=== PATIENT | female | born 1945 | race Caucasian/White ===

== ENCOUNTER → 2016-10-04 | Outpatient (CLI) | payer OTHER ==
[~2016-10-04] MED LIST: ACTONEL150 MG PO; ADVAIR HFA115 MCG/21 INH; AMITIZA8 MCG; APAP/CODEINE ELI5 M1 OR; ATROVENT HFA14 GM INH; AVELOX400 MG PO; BENADRYL25 MG PO; BENTYL 20 MG TA20 M1 PO; BIOTIN2500 MCG PO; CALCIUM CITRAT1 EA18 PO; CELEXA40 MG PO; COLACE100 MG PO; DEXILANT60 MG PO; DIPHENHIST25 M2 PO; E E S PO; ENDOCET 7.5-321 EACH; ESTRACE2 MG VAG; ESTROVEN ENER400 MCG PO; ESTROVEN MOOD400 MCG PO; ESTROVEN REGU400 MCG PO; EXCEDRIN MIGRA1 EAC1 PO; FISH OIL 1,001000 M1 PO; FLEXERIL PO; GABAPENTIN 100100 MG PO; GAS-X125 MG PO; GLUCOSAMINE HC500 MG PO; HYDROCODON-ACE1 EAC5 PO; HYDROCODON-ACE1 EAC7 PO; LEVAQUIN 250 M250 MG PO; MAGNESIUM250 M1 PO; MICARDIS HCT 41 EACH; MICARDIS HCT 41 EACH PO; MIDRIN CAPSULE1 CAP; MIRALAX255 GM PO; MOBIC7.5 MG PO; NEXIUM40 MG; NORCO 5-325 TA1 EACH; NORCO 5-325 TA1 EACH PO; OXYCODONE HCL5 M1; PHENERGAN 25 MG25 M1 PO; PREMARIN VAGI42.5 G1 VAG; PROTONIX40 M1 PO; SENNA8.6 M1 PO; SENNA8.6 MG PO; SPIRIVA INH; SPIRONOLACTONE25 M1 PO; SYMBICORT160 MCG/4. INH; TRAMADOL 50 MG50 MG PO; TYLENOL325 MG PO; VITAMIN E OIL-V52 M1 PO; VITAMINC500 PO; XARELTO10 MG PO; XOPENEX HF1 UDINHALE INH; ZOMIG ZMT2.5 MG PO
== END ==
LOC: RAD 11:11
DX: S22.42XA Multiple fractures of ribs, left side, initial encounter for closed fracture (principal)

== ENCOUNTER → 2018-11-09 | Outpatient (CLI) | payer OTHER | LOC: RAD 11:45 | DX: Z12.31 Encounter for screening mammogram for malignant neoplasm of breast (principal) ==

== ENCOUNTER 2019-04-23 07:51 | Inpatient (IN) | payer OTHER ==
[2019-04-11 16:03] LABS: HEMATOCRIT 38.1 % (37.0-47.0); HEMOGLOBIN 12.7 gm/dL (12.0-15.0); MCH 30.4 pg (26.0-34.0); MCHC 33.2 g/dL (28.0-37.0); MCV 91.8 fL (80.0-100.0); RBC 4.16 mil/uL (4.20-5.00); WBC 7.9 thou/uL (4.0-11.0)
[2019-04-11 16:04] LABS: URINE BILIRUBIN NEGATIVE (Negative); URINE BLOOD TRACE (Negative); URINE CLARITY CLEAR; URINE COLOR YELLOW; URINE GLUCOSE-RANDOM* NEGATIVE (Negative); URINE KETONES NEGATIVE (Negative); URINE LEUKOCYTES-REFLEX NEGATIVE (Negative); URINE NITRITE-REFLEX NEGATIVE (Negative); URINE PROTEIN (DIPSTICK) NEGATIVE (Negative); URINE UROBILINOGEN 0.2 E.U./dl (0.2-1.0)
[2019-04-11 16:16] LABS: PROTIME 10.4 Seconds (9.3-11.4)
[2019-04-11 16:26] LABS: ALBUMIN 3.4 g/dL (3.4-5.0); CALCIUM 8.6 mg/dL (8.5-10.1); CREATININE 1.1 mg/dL (0.6-1.0); POTASSIUM 4.4 mmol/L (3.5-5.1); TOTAL BILIRUBIN 0.2 mg/dL (<0.1-1.0); TOTAL PROTEIN 5.9 g/dL (6.4-8.2)
[~2019-04-23] VITALS: Ht 170.2 cm; Wt 108.4 kg
[~2019-04-23 07:51] MED LIST changes: +ANORO ELLIPTA1 EACH INH; +ASA81BEC PO; +BETAMETHASONE D50 G2 TOP; +BIOTIN5000 MCG PO; +DIPHENHIST50 MG PO; +ESTROVEN ENERG1 EACH PO; +EXCEDRIN CAPLE1 EACH PO; +FLECAINIDE ACET50 M2 PO; +FUROSEMIDE 20 M20 MG PO; +LIPITOR40 MG PO; +LORCET 5-325 M1 EACH PO; +MELATONIN3 M1 PO; +MYSOLINE50 MG PO; +NEURONTIN 300M300 M2 PO; +PREMARIN30 GM TOP; +PROLIA60 MG/1 ML SUBQ; +SM GLUCOSAMINE1 EACH PO; +TOPROL XL25 MG PO; +VITAMIN D31000 UNIT PO; -XOPENEX HF1 UDINHALE INH; +XOPENEX HFA15 GM INH
[2019-04-23 08:57] VITALS: BP 102/58
--- NOTE | 2019-04-23 18:30 | NUR ---
PT RECEIVED FROM REC RM AT 1500 ALERT AND IN NO ACUTE DISTRESS. PT AMBULATED W/ WALKER W/ THERAPIST AND DID WELL. NO C/O PAIN. O2 INCREASED TO 5L PT NOT BREATHING DEEP ENOUGH. RT TX TO START AND CO2 MONITOR. UP TO BSC TO VOID. EATING AND DRINKING WELL.
[2019-04-23 19:45] VITALS: BP 114/65
--- NOTE | 2019-04-24 04:24 | NUR ---
ASSUMED CARE OF PATIENT AT SHIFT CHANGE. ASSESSMENT CHARTED. MEDICATIONS GIVEN PER MAR. PATIENT IS A&OX4, VSS. PATIENT VOICES EXTREME PAIN AND DISCOMFORT AT A 8-9/10. PATIENT REFUSES TO USE BEDPAN BUT IS UP X 2 - MAX ASSIST WITH A GAIT BELT AND WALKER TO THE BEDSIDE COMMODE. PATIENT DID NOT TOLERATE WELL AND C/O PAIN AT HIP. PRN PAIN MEDS GIVEN PER MAR. PATIENT IS DOING WELL POSTOPERATIVELY. FALL PRECAUTIONS IN PLACE. WILL CONTINUE TO MONITOR AND FOLLOW POC
[2019-04-24 04:40] VITALS: BP 110/62
--- NOTE | 2019-04-24 05:07 | NUR ---
PATIENT VOICED PAIN EARLIER AT A 01/20. PATIENT WAS GIVEN PRN PAIN MEDS PER MAR. PATIENT REQUESTED TO HAVE A LOWER DOSE OF PRN PAIN MED DUE TO ITCHING AND NAUSEA. LAST PAIN MED GIVEN W/ SANDWHICH AND BENADRYL PATIENT ALWAYS TAKES BENADRYL W/ NORCO. PATIENT ALSO REQUESTED TO USE FRACTURE WHITMAN. WILL CONTINUE TO MONITOR
[2019-04-24 05:14] LABS: HEMATOCRIT 28.5 % (37.0-47.0); HEMOGLOBIN 9.4 gm/dL (12.0-15.0); MCH 30.2 pg (26.0-34.0); MCHC 32.9 g/dL (28.0-37.0); MCV 91.7 fL (80.0-100.0); PLATELET COUNT 147 thou/uL (150-400); RBC 3.11 mil/uL (4.20-5.00); RDW 13.8 % (10.5-14.5); WBC 7.8 thou/uL (4.0-11.0)
[2019-04-24 05:17] LABS: CALCIUM 8.3 mg/dL (8.5-10.1); CREATININE 1.2 mg/dL (0.6-1.0); MAGNESIUM 1.4 mg/dL (1.8-2.4); POTASSIUM 4.4 mmol/L (3.5-5.1)
[2019-04-24 07:45] VITALS: BP 123/50
[2019-04-24 08:45] LABS: ABSOLUTE NEUTROPHILS 5.6 thou/uL (1.4-8.2); PLATELET ESTIMATE NORMAL
--- NOTE | 2019-04-24 12:35 | NUR ---
ASSESSMENT-PT LIVES AT HOME WITH HER . [address]. PT USES A ROLLER WALKER TO GET AROUND AT HOME. THEY HAVE A CLEANING LADY THAT COMES EVERY 2 WEEKS. DOES THE LAUNDRY AND COOKING. PT HAS 02 FROM [facility]. SHE WANTS TO USE [facility]. THEY HAVE A DTR IN THE AREA AND A SON IN [place]. FOLLOWING TO ASSIST WITH DC PLANNING.
[2019-04-24 15:55] VITALS: BP 109/53
--- NOTE | 2019-04-24 17:39 | O ---
[facility] [place] [address] OPERATIVE REPORT Name: GIGI HAYES Room #: 438-P [facility] IN M.R.#: [id number] Admission: 04/23/19 Attend Phys: Vincenzo Earl MD Discharge: Date of : 49 Report #: [id number] THIS REPORT FOR: //name// CC: Vincenzo Earl Shane Orellana DATE OF SERVICE: 04/23/2019 PREOPERATIVE DIAGNOSIS: End-stage degenerative arthritis, right hip. POSTOPERATIVE DIAGNOSIS: End-stage degenerative arthritis, right hip. PROCEDURE: Right total hip arthroplasty. SURGEON: Vincenzo Earl MD INDICATIONS: This heavy deconditioned 73-year-old female with multiple chronic medical problems including COPD, also has severe degenerative arthritis involving the right hip. She underwent right total knee replacement in the past with good result. She is now having more severe hip pain, which limits her ability to remain functional and independent. The patient and family have discussed this at some length and reviewed this with her other physicians. She has elected to go ahead with right total hip arthroplasty. The patient and family understand she is at some increased risk given her other comorbidity issues. DESCRIPTION OF PROCEDURE: The patient was taken to the operating room where she was placed under general anesthesia. Prophylactic intravenous antibiotics were administered. She was turned to the left lateral decubitus position. The right hip, thigh and leg were meticulously prepped and draped. A slightly curving posterolateral skin incision was made centered over the greater trochanter. This was carried through fascia and the gluteus was spread bluntly exposing the posterior aspect of the hip joint. The short external rotators and capsule were taken down and preserved and tagged with several #2 FiberWire sutures. The hip was dislocated posteriorly. Marked degenerative change on both the acetabulum and the femoral head was noted. The femoral neck osteotomy was performed. The canal was prepared with reamers and hand broaches. The [employer] and [employer] system was utilized. A size 14 stem seemed to fit most appropriately. The calcar was trimmed down to an appropriate level. The acetabulum was visualized, although with some difficulty given her very large size. There was a good deal of spurring around the margin of the acetabulum, which was debrided. The acetabulum was then sequentially reamed, gradually advancing to a size 54 mm reamer. This was positioned with as much anteversion as I could, although this was somewhat limited by her very large size and difficulty with exposure given the femur, which was impeding in exposure of the acetabulum to some extent. Nevertheless, I felt we have acceptable alignment with slightly greater [address] [address] OPERATIVE REPORT Name: GIGI HAYES Room #: 438-P [facility] IN .R.#: [id number] Admission: 04/23/19 Attend Phys: Vincenzo Earl MD Discharge: Date of : 49 Report #: [id number] anteversion than her true acetabulum. The trial component was removed and the permanent size 54 mm 3-hole StikTite hemispherical shell was inserted. This was implanted in as much anteversion as I could obtain with the limits of the exposure. It seated nicely and appeared to be secure. Two screws were placed through the apex holes with adequate purchase. A polyethylene liner was then placed positioning the 20-degree elevated rim at about the 10 o'clock posterior position. It seated nicely and appeared to be secure. The size 14 Synergy high offset stem was selected. This was impacted in the canal in about 15 degrees of anteversion. It seated nicely and appeared to be secure. A trial reduction was performed and a +0 neck length seemed to be the best option. A cobalt chrome 36 mm head with a +0 neck length was selected. This was impacted onto the Landers taper of the femoral neck and then the hip was reduced. There is a slight tendency for posterior instability, but this seems to be within acceptable limits and was much improved once the capsule and short external rotators were repaired back to bone. This was accomplished with the #2 FiberWire sutures, which were passed through drill holes in the greater trochanter. Alignment, range of motion, stability and leg length were assessed and felt to be satisfactory. A single Hemovac was left in the wound exiting through a separate stab incision. The fascia was closed with multiple #1 Vicryl sutures. The abundant adipose tissues and subcutaneous tissues were closed with 0 Monocryl. The skin was closed with skin chucky. A sterile dressing was applied. The patient was awakened and returned to recovery room in good condition. <ELECTRONICALLY SIGNED> By: Vincenzo Earl MD 04/24/19 1739 1227 1305 Vincenzo Earl MD /nt
--- NOTE | 2019-04-24 17:54 | NUR ---
ASSUMED CARE OF PT AT 0700. LUNGS ARE CLEAR. L HAND SALINE LOCKED DRY AND INTACT.HEMO VAC DRAIN REMOVED. NASAL CANNULA DOWN TO 3L. PAIN CONTROLLED BY PAIN MEDICATION. NEW LUIS HOSE FOR LEFT LEG, ICE PACK AND DAHLIA DRESSING INTACT. PT REFUSES CPAP MACHINE. FALL PRECAUTIONS IN PLACE. BED IN LOWEST POSITION. CALL LIGHT WITHIN REACH. WILL CONTINUE TO MONITOR THE PT.
[2019-04-24 19:21] VITALS: BP 119/40
--- NOTE | 2019-04-25 03:00 | NUR ---
ASSUMED PT CARE ON 04/24/19 AT 1920. PT GRIMACES WHEN TALKING ABOUT HER PAIN. WHEN GETTING TO THE RESTROOM THE PT IS A MAX ASSIST (4 PERSON). PT ALSO TAKES EXTRA TIME. PT HAS MOMENTS OF CONFUSION OR FORGETFULLNESS. PT DOES NOT VOID A LOT WHEN SHE GETS UP TO THE CAMMODE. WILL DO A BLADDER SCAN TO CHECK RESIDUAL. ADMINISTERED PAIN MEDICATION WITH HER SCHEDULED MEDICATION. PT IS ASLEEP IN HER ROOM. WILL CONTINUE TO MONITOR.
[2019-04-25 04:49] LABS: HEMATOCRIT 27.2 % (37.0-47.0); HEMOGLOBIN 9.1 gm/dL (12.0-15.0); MCH 30.5 pg (26.0-34.0); MCHC 33.3 g/dL (28.0-37.0); MCV 91.6 fL (80.0-100.0); RBC 2.97 mil/uL (4.20-5.00); RDW 13.9 % (10.5-14.5); WBC 10.3 thou/uL (4.0-11.0)
[2019-04-25 05:03] LABS: CALCIUM 8.3 mg/dL (8.5-10.1); CREATININE 1.3 mg/dL (0.6-1.0); MAGNESIUM 1.4 mg/dL (1.8-2.4); POTASSIUM 4.4 mmol/L (3.5-5.1)
[2019-04-25 08:16] VITALS: BP 122/51
--- NOTE | 2019-04-25 11:00 | NUR ---
ASSUMED CARE OF THE PT AT 0700. PT IS UP WITH ASSIST X 2-3. PT BECOMES VERY FATIGUED AND WEAK WHEN AMBULATORY AND IS UNABLE TO WALK OUT OF THE ROOM. HEMOVAC DRAIN WAS DC'D ON 04/24/2019. PTS PAIN IS BEING CONTROLLED BY PAIN MEDICATIONS. PTS DRESSING IS DRY AND INTACT. LUIS HOSE WERE REPLACED ON 04/24/2019. PILLOW IS BETWEEN THE LEGS, ICE PACK IN PLACE, SCD'S ARE ON AND PT IS CHANGING POSITIONS Q2, ALONG WITH DEEP BREATHING AND COUGHING. LUNGS ARE CLEAR. L HAND IV IS SALINE LOCKED, DRY AND INTACT. FALL PRECAUTIONS ARE IN PLACE, BED IS IN THE LOWEST POSITION AND CALL LIGHT IS WITHIN REACH. WILL CONTINUE TO MONITOR THE PT.
--- NOTE | 2019-04-25 14:50 | NUR ---
CASE DISCUSSED WITH DR LIANG AND HE IS AGREEABLE TO PT GOING TO 5N IF SHE QUALIFIES. 5N EVAL WILL BE DONE IN THE AM. IF PT DOES NOT QUALIFY FOR 5N THEY WANT TO GO TO [facility].
[2019-04-25 17:40] VITALS: BP 111/44
[2019-04-25 19:37] VITALS: BP 114/49
[2019-04-26 03:41] VITALS: BP 115/53
--- NOTE | 2019-04-26 03:51 | NUR ---
ASSUMED PT CARE ON 04/25/19 AT 1915. PT IS ALERT BUT SPEACH IS GARBLED AT TIMES. PT HAS COMPLAINTS OF RIGHT SIDE HIP PAIN AND BACK PAIN FROM BEING UNCOMFORTABLE IN THE BED. PT COMPLAINS OF BACK PAIN FROM TRYING TO STAY OFF OF RIGHT HIP. WHEN I OFFERED TO TURN HER, SHE REFUSED AND SAID THAT IT HURT TOO MUCH AND THAT SHE JUST WANTED TO BE STRAIGHTENED UP IN BED. PT REFUSED Q2 TURNS. PT WAS RELIEVED WHEN HER LEFT. PT IS NOW RESTING IN HER ROOM. PT GRIMACES AND SIGHS WHEN I VISIT HER ROOM WHEN I ASK IF SHE IS OKAY OR NEEDS ANYTHING SHE APPEARS TO BE SLEEPING. WILL CONTINUE TO MONITOR
[2019-04-26 05:06] LABS: HEMATOCRIT 26.8 % (37.0-47.0); MCH 30.4 pg (26.0-34.0); MCHC 33.5 g/dL (28.0-37.0); MCV 90.9 fL (80.0-100.0); RBC 2.95 mil/uL (4.20-5.00); RDW 13.9 % (10.5-14.5)
[2019-04-26 07:50] VITALS: BP 116/47
--- NOTE | 2019-04-26 10:39 | NUR ---
PAGED DR. TOWNSEND ABOUT PT AND SPOUSES CONCERN OF BP READING. MD WOULD LIKE ORTHOSTATIC BP DONE SUPINE AND STANDING AND WILL COME BY AND TALK TO PT AND SPOUSE FOR FURTHER EDUCATION.
--- NOTE | 2019-04-26 10:40 | NUR ---
PT CARE RECEIVED APPROX. 0700. A&Ox4 PT HAS HER DAYS AND NIGHTS MIXED UP AND PER HUSBANDS STATEMENT THIS IS NORMAL FOR HER POSTOPERATIVE. PT. TOOK STOOL SOFTENERS WHICH SHE HAD REFUSED IN THE PAST. IV IS SALINE LOCKED. BENITO IN PLACE AND RUNNING WELL. ON 3L OF O2. USES PILLOW BETWEEN LEGS INSTEAD OF SPACER. PICCO DRESSING INTACT. AWAITING PLACEMENT TO REHAB ON 4N WILL BE THERE FOR 2 WEEKS.
[2019-04-26] MEDS ORDERED: IPRAT-ALBUT 0.5-3 ML INH (10:58)
[2019-04-26] MEDS ORDERED: FLEXERIL PO (10:59)
[2019-04-26 12:52] LABS: HEMATOCRIT 30.6 % (37.0-47.0); HEMOGLOBIN 9.9 gm/dL (12.0-15.0); MCH 29.6 pg (26.0-34.0); MCHC 32.5 g/dL (28.0-37.0); MCV 91.2 fL (80.0-100.0); RBC 3.35 mil/uL (4.20-5.00); RDW 14.1 % (10.5-14.5); WBC 10.1 thou/uL (4.0-11.0)
[2019-04-26 13:02] LABS: CALCIUM 9.1 mg/dL (8.5-10.1); CREATININE 1.3 mg/dL (0.6-1.0); POTASSIUM 4.4 mmol/L (3.5-5.1)
[2019-04-26 13:06] LABS: MAGNESIUM 1.5 mg/dL (1.8-2.4); PHOSPHORUS 3.4 mg/dL (2.5-4.9)
--- NOTE | 2019-04-26 14:52 | NUR ---
PT HAS BEEN ACCEPTED TO 5N BUT HAD MORE MEDICAL ISSUES TODAY SO DC HAS BEEN HELD FOR TODAY. NURSING TO CONTACT DR LIANG TO LAERT HIM OF THIS WELL.
[2019-04-26 15:50] VITALS: BP 113/41
[2019-04-26 15:52] VITALS: BP 166/109
--- NOTE | 2019-04-26 15:54 | NUR ---
I have reviewed the documentation by PETER GONZALEZ from 04/26/19 to 04/26/19 and I concur with it. FREDA FABIAN
[2019-04-26 16:03] VITALS: BP 124/56
--- NOTE | 2019-04-26 20:13 | NUR ---
PT CARE ASSUMED APPROX. 0700. PATIENT A&Ox4 WITH POST OPERATIVE CONFUSION WHICH SPOUSE STATES IS NORMAL FOR HER FOR ABOUT 3 DAYS. BENITO IS PATENT RUNS WELL. URINE SAMPLE COLLECTED CAME BACK NEGATIVE. PT ON 3L PER HOME. PT UP WITH PT BUT DOES NOT TOLERATE MOBILIZATION VERY WELL EVEN PREMEDICATED DUE TO PREVIOUSE NON RELATED SURGERIES TO RIGHT SHOULDER AND LEFT KNEE. PT. HAS PILLOW BETWEEN KNEES . PT DID NOT REFUSE HER STOOL SOFTENERS FOR ME TODAY. PT. SPOUSE STATED THAT PT BP IS NOT NORMAL FOR HER AND WAS CONCERNED ABOUT MOBILIZATION DUE TO THIS AND PAIN. DR. TOWNSEND PAGED AND INFORMED. ORTHOSTATIC BP WERE ORDER SUPINE AND STANDING WITH MAP. RESULTS WERE 113/41 MAP 58 STANDING 166/109 MAP 122. FLUIS WERE ORDERD WITH CHEST X-RAY,AND EKG. PT. AND SPOUSE INFORMED OF UPDATE. BP. MEDICATION HELD IN THE AM. PT. LESS CONFUSED STARTING 1800. DISCHARGED IS ON HOLD PENDING RESULTS AND MORNING ROUNDING
[2019-04-27 03:20] VITALS: BP 115/55
--- NOTE | 2019-04-27 03:42 | NUR ---
ASSUMED PT CARE ON 04/26/16 AT APROX. 1915. PT IS ALERT AND ORIENTED UPON ENTERING ROOM. PT IS EATING AND STATES THAT SHE IS NOT IN PAIN. I ADMINISTERED MEDICATION DURING THE REAASSESSMENT I NOTICED THAT SHE HAS REDNESS AND WARMTH ON HER RIGHT HIP. TURNED PT DURING THE SHIFT BUT THE PT ALSO REFUSED TO BE TURNED. PT HAS BENITO IN PLACE. CALLED THE STAPLER MACHINE DUE TO AN INCREASED TEMPERATURE (100.1). INSTRUCTED TO DRAW A BORDER AROUND REDNESS. I ADMINISTERED TYLENOL. I WILL CONTINUE TO MONITOR.
--- NOTE | 2019-04-27 04:07 | NUR ---
PT MAP WAS 65 FOR THE FIRST SET OF VITALS. PT MAP WAS 69 FOR THE SECOND SET OF VITALS.
[2019-04-27 05:33] LABS: HEMATOCRIT 25.6 % (37.0-47.0); HEMOGLOBIN 8.4 gm/dL (12.0-15.0); MCH 29.8 pg (26.0-34.0); MCV 90.5 fL (80.0-100.0); PLATELET COUNT 188 thou/uL (150-400); RBC 2.83 mil/uL (4.20-5.00); RDW 13.8 % (10.5-14.5); WBC 8.9 thou/uL (4.0-11.0)
[2019-04-27 05:36] LABS: CALCIUM 8.5 mg/dL (8.5-10.1); CREATININE 1.2 mg/dL (0.6-1.0); MAGNESIUM 1.9 mg/dL (1.8-2.4); POTASSIUM 4.5 mmol/L (3.5-5.1)
[2019-04-27 07:03] LABS: ABSOLUTE NEUTROPHILS 6.5 thou/uL (1.4-8.2); METAMYELOCYTES 2 %; PLATELET ESTIMATE NORMAL
[2019-04-27 07:44] VITALS: BP 113/56
--- NOTE | 2019-04-27 07:58 | EKG ---
[place] [address] [facility] [place] [address] ELECTROCARDIOGRAM REPORT Name: ABIGAILGIGI A Room #: 438-P ADM IN M.R.#: [id number] Admission: 04/23/19 Attend Phys: Vincenzo Earl MD Discharge: Date of : 49 Report #: [id number] THIS REPORT FOR: //name// [facility] Test Date: 2019-04-26 Test Time: 13:30:44 Pat Name: GIGI HAYES Department: Room: 438 Gender: F B[employer] Agent: Femi JONES : 1945 Requested By: Chyna Gooden Order Number: [id number] MD: Shawn Lott Measurements Intervals Lyndon Rate: 126 P: 0 [place]: 51 QRS: 62 QRSD: 157 T: 240 QT: 379 QTc: 549 Interpretive Statements Wide complex tachycardia Left bundle branch block Compared to ECG 10/08/2014 09:16:00 Heart rate has increased Left bundle branch block is now present Electronically Signed On 04-27-2019 7:58:40 PROFESSOR OF APOLOGETICS by Shawn Lott [email or web address] <ELECTRONICALLY SIGNED> By: Shawn Lott MD, [facility] 04/27/19 0758 1330 1330 Shawn Lott MD, [facility] /EPI
--- NOTE | 2019-04-27 08:37 | NUR ---
Assumed care of pt at 0700. Swelling, redness, and warmth noted on incision area. Intermittent confusion. Chest x-ray shows pneumonia on both lung bases. Provider aware. New orders noted. Pt to be transferred to CCU. Hospitalist doctor states she will notify Dr. Earl. Will continue to monitor and transfer when bed available in CCU.
[2019-04-27 08:50] VITALS: BP 102/71
[2019-04-27 10:42] VITALS: BP 103/45
--- NOTE | 2019-04-27 10:47 | NUR ---
ARTURO reviewed chart and spoke with nursing. Pt was transferred to 3W from 4S this morning due to change in condition. Pt with pneumonia. Plan is for pt to discharge to 5N when medically stable. ARTURO discussed with rehab physician's KNOCKDOWN MAN. ARTURO is following to assist as needed with discharge planning.
--- NOTE | 2019-04-27 14:12 | NUR ---
UPDATE PROVIDED TO PT'S . PT HAS BEEN ACCEPTED TO 5N PENDING MEDICAL STABILITY AND BED AVAILABILITY.
[2019-04-27 15:31] VITALS: BP 116/50
[2019-04-27 16:38] LABS: HEMATOCRIT 28.4 % (37.0-47.0); HEMOGLOBIN 9.3 gm/dL (12.0-15.0)
--- NOTE | 2019-04-27 19:33 | NUR ---
PT TRANSFERRED TO CRITICAL CARE TELE THIS AM. NSR/BBB. COMPLAINING OF INCISIONAL PAIN. PT STATES SHE CANNOT TAKE HYDROCODONE WITHOUT BENEDRYL. REQUESTING BENEDRYL ORDERED. DR TOWNSEND NOTIFIED. QT PROLONGED ON EKG YESTERDAY SO PER DR TOWNSEND SHE DOES NOT WANT PT TO HAVE BENEDRYL AT THIS TIME. DISCUSSED WITH PATIENT. TYLENOL GIVEN THIS EVENING AND PAIN IMPROVED. PT'S AT BEDSIDE AND UPDATED TODAY.
[2019-04-27 20:00] VITALS: BP 137/49
[2019-04-28 04:10] VITALS: BP 117/56
--- NOTE | 2019-04-28 06:38 | NUR ---
ASSUMED CARE AT 1900. PT DENIED NAUSEA OR SOB; SATTING WELL ON HOME DOSE OF O2 3L. REPORTED PAIN IN RIGHT HIP WAS ONLY A 1-2 AND DECLINED MEDS OVERNIGHT. HAS BEEN SR WITH A BBB. GOOD URINE OUTPUT FROM BENITO, DARK YELLOW. PT HAD GOOD ORAL INTAKE OF FLUIDS. LUIS HOSE IN PLACE BILATERALLY. HAD A LARGE, HARD, DARK ORANGE BM ON THE BEDPAN CLOSE TO MIDNIGHT. DAHLIA DRESSING TO RIGHT HIP C/D/I WITH DRIED YELLOW/GREEN DRAINAGE; TRACE EDEMA AROUND DRESSING WITH SMALL AMOUNT OF PINKNESS. NO OTHER CONCERNS, WILL CONTINUE TO MONITOR.
[2019-04-28 07:35] VITALS: BP 106/77
[2019-04-28 11:56] VITALS: BP 124/51
--- NOTE | 2019-04-28 15:31 | NUR ---
PT PLANS TO TX TO 5N LATER TODAY WHEN BED AVAILABLE...
[2019-04-28 15:51] VITALS: BP 141/44
== END 2019-04-28 18:24 | DRG 470 ==
LOC: TBA 07:51 → 4S 07:51 → PRE 08:22 → 4S 14:59 → 3W 04-27 10:33
PROVIDERS: Internal Medicine; Nurse Practitioner; ADMIT Orthopaedic Surgery
PROC: 0SR90JZ Replacement of Right Hip Joint with Synthetic Substitute, Open Approach (ICD-10-PCS; principal; 2019-04-23)
DX: M16.11 Unilateral primary osteoarthritis, right hip (principal); J98.11 Atelectasis; D62 Acute posthemorrhagic anemia; G89.29 Other chronic pain; G47.33 Obstructive sleep apnea (adult) (pediatric); F32.9 Major depressive disorder, single episode, unspecified; F41.9 Anxiety disorder, unspecified; E78.5 Hyperlipidemia, unspecified; K21.9 Gastro-esophageal reflux disease without esophagitis; I12.9 Hypertensive chronic kidney disease with stage 1 through stage 4 chronic kidney disease, or unspecified chronic kidney disease; J43.9 Emphysema, unspecified; Z96.651 Presence of right artificial knee joint; I95.9 Hypotension, unspecified; K58.1 Irritable bowel syndrome with constipation; E66.9 Obesity, unspecified; N18.3 Chronic kidney disease, stage 3 (moderate); D69.6 Thrombocytopenia, unspecified; E83.42 Hypomagnesemia; I44.7 Left bundle-branch block, unspecified; M19.011 Primary osteoarthritis, right shoulder; M17.12 Unilateral primary osteoarthritis, left knee; I48.0 Paroxysmal atrial fibrillation; Z68.37 Body mass index [BMI] 37.0-37.9, adult; Z88.8 Allergy status to other drugs, medicaments and biological substances; Z99.81 Dependence on supplemental oxygen; Z87.891 Personal history of nicotine dependence; Z86.73 Personal history of transient ischemic attack (TIA), and cerebral infarction without residual deficits
CPT/HCPCS: 10102; 10779; 50010; 50101; 50382; 50414; 51412; 53000; 53367; 56521; 56525; 56530; 57095; 57103; 62110; 62900; 70005

== ENCOUNTER 2019-04-26 11:22 | Inpatient (IN) | payer OTHER ==
[~2019-04-26] VITALS: Ht 170.2 cm; Wt 107.0 kg
[~2019-04-26 11:22] MED LIST changes: +IPRAT-ALBUT 0.5-3 ML INH
[2019-04-28 18:25] VITALS: BP 115/53
[2019-04-28 18:53] VITALS: BP 115/53
--- NOTE | 2019-04-29 03:45 | NUR ---
PT ARRIVED TO UNIT APPROX 1830 BEFORE CHANGE OF SHIFT. PT ALERT AND ORIENTED X4, SOMEWHAT FORGETFUL, APPROPRIATE AND COOPERATIVE. PT TOOK HS MEDS WITH WATER TOLERATING WELL. RIGHT DAHLIA HIP DRESSING IN PLACE C/D/I. BENITO TO DD WITH CLEAR, YELLOW URINE TO BAG. 02 AT 3L PER N/C. PT APPEARS TO BE SLEEPING SOUNDLY WITH HOURLY ROUNDING CHECKS. BED ALARM ON AND CALL LIGHT IN REACH. WILL CONTINUE TO MONITOR.
[2019-04-29 05:55] LABS: HEMATOCRIT 26.5 % (37.0-47.0); HEMOGLOBIN 8.9 gm/dL (12.0-15.0); MCH 30.3 pg (26.0-34.0); MCHC 33.5 g/dL (28.0-37.0); MCV 90.5 fL (80.0-100.0); RBC 2.92 mil/uL (4.20-5.00); RDW 13.6 % (10.5-14.5); WBC 7.2 thou/uL (4.0-11.0)
[2019-04-29 06:22] LABS: CREATININE 0.9 mg/dL (0.6-1.0); MAGNESIUM 1.8 mg/dL (1.8-2.4); POTASSIUM 3.9 mmol/L (3.5-5.1)
[2019-04-29 08:00] VITALS: BP 139/73
--- NOTE | 2019-04-29 16:36 | NUR ---
[place] [address]. PT IS A&OX4 AND VITAL SIGNS ARE STABLE. PT REPORTS PAIN IN LEFT HIP, WHICH WAS MANAGED WITH PO MEDICAITONS. PT PARTICIPATED IN SCHEDULED THERAPIES. DAHLIA DRESSING TO RIGHT HIP INTACT, BENITO CATHETER DRAINING APPROPRIATELY WITH ADEQUATE URINE OUTPUT. AT BEDSIDE THIS EVENING. PT SPO2 WNL WITH 3L O2 VIA NC. CALLS FOR ASSISTANCE APPROPRIATELY. FALL PRECAUTIONS IN PLACE AND NURSING WILL CONTINUE TO MONITOR.
[2019-04-29 19:20] VITALS: BP 114/52
--- NOTE | 2019-04-29 22:45 | NUR ---
PT ASSESSMENT COMPLETED AND VSS. MEDS GIVEN ORDERED AND WELL TOLERATED. FALL PRECAUTIONS IN PLACE. BENITO DRAINING YELLOW URINE. DSG ON R HIP INTACT. ASST WITH REPOSITION FOR COMFORT. SAT WNL ON 3L NC. BENDADRYL HELPFUL FOR ITCHING. SLEEPING WELL. WILL CONTINUE TO MONITOR FREQUENTLY.
[2019-04-30 05:46] LABS: HEMATOCRIT 26.3 % (37.0-47.0); HEMOGLOBIN 8.7 gm/dL (12.0-15.0); MCH 29.8 pg (26.0-34.0); MCV 90.4 fL (80.0-100.0); PLATELET COUNT 262 thou/uL (150-400); RBC 2.91 mil/uL (4.20-5.00); RDW 13.9 % (10.5-14.5); WBC 6.8 thou/uL (4.0-11.0)
[2019-04-30 06:34] LABS: ALBUMIN 2.2 g/dL (3.4-5.0); CALCIUM 8.6 mg/dL (8.5-10.1); CREATININE 0.9 mg/dL (0.6-1.0); MAGNESIUM 1.7 mg/dL (1.8-2.4); PHOSPHORUS 4.6 mg/dL (2.5-4.9); POTASSIUM 4.1 mmol/L (3.5-5.1); TOTAL BILIRUBIN 0.3 mg/dL (<0.1-1.0); TOTAL PROTEIN 5.8 g/dL (6.4-8.2)
[2019-04-30 06:48] LABS: ABSOLUTE NEUTROPHILS 4.1 thou/uL (1.4-8.2); METAMYELOCYTES 2 %; MYELOCYTES 1 %; PLATELET ESTIMATE NORMAL
--- NOTE | 2019-04-30 10:38 | NUR ---
chart review. cm visited with pt at bedside, her at bedside as well, had question about yasmin therapy luisa for today, ot providing education on the luisa. intro to transition of on care and team meeting. pt and reported " live home with spouse, have home oxygen from [facility]. had to wear o2 since back surgery have not be able to stop using it. still drive vehicle, roller walker. cooks and does laundry. manage own medication. have cleaning service q 2 weeks. [facility] is who had and will use"/oksana hoffman and chart.
--- NOTE | 2019-04-30 16:41 | NUR ---
ASSUMED CARE OF PT AT 0715. PT IS A&OX4 AND VITAL SIGNS ARE STABLE. PT DENIES PAIN AND PARTICIPATED IN SCHEDULED THERAPIES. BENITO CATHETER IN PLACE AND DRAINING APPROPRIATELY WITH ADEQUATE URINE OUTPUT. DAHLIA DRESSING TO RIGHT HIP IN PLACE. 3L OF O2 VIA NC TO MAINTAIN SPO2 >90%. FLUID RESTRICTION D/C'D. MAINTAIN HIP PRECAUTIONS. FALL PRECATIONS IN PLACE AND NURSING WILL CONTINUE TO MONITOR.
[2019-04-30 19:09] VITALS: BP 144/58
--- NOTE | 2019-04-30 22:44 | NUR ---
PT ASSESSMENT COMPLETED AND VSS. MEDS GIVEN ORDERED AND WELL TOLERATED. FALL PRECAUTIONS IN PLACE. UP WITH ASST/GAIT/WALKER. DRSG ON RIGHT HIP INTACT. ASST WITH REPOSITION FOR COMFORT. BENITO DRAINING YELLOW URINE. SUPPORTIVE AT BEDSIDE. SLEEPING WELL. WILL CONTINUE TO MONITOR FREQUENTLY.
[2019-05-01 08:10] VITALS: BP 130/68
--- NOTE | 2019-05-01 13:53 | NUR ---
team meeting, recommendation: 25th with [facility] vs outpt, need follow up with pcp on dc with warren.
--- NOTE | 2019-05-01 17:19 | NUR ---
ASSUMED CARE OF PT AT 0715. PT IS A&OX4.IS ON 3L OF O2/NC CONTINUOUSLY. IS STABLE. REPORTS PAIN IN RIGHT HIP THAT IS BEING MANAGED WITH TYLENOL. PT HAS BEEN OFFERED NORCO SEVERAL TIMES, BUT REFUSES TO TAKE IT. DAHLIA DRSG INTACT & IS TO REMAIN INTACT UNTIL OUTPT F/U APPT WITH DR. LIANG ON 05/08/19 PER HIS OFFICE. PT INFORMED. ICE PACKS PROVIDED & EDUCATION TO APPLY 20-30 MINUTES THEN OFF INTERMITTENTLY. TEDS IN PLACE. IS UP WITH 1 ASSIST, GB, WALKER. FALL PRECAUTIONS/HIP PRECAUTIONS/HOURLY ROUNDING MAINTAINED. LABS & VITALS REVIEWED. SPOUSE AT BEDSIDE. CALL LIGHT WITHIN REACH. THONG IN PLACE. PT TO DC ON Tuesday05/07/19 WITH HH/OUTPT THERAPY. WILL CONTINUE TO MONITOR.
[2019-05-01 19:00] VITALS: BP 109/65
--- NOTE | 2019-05-02 02:59 | NUR ---
assumed care at approx 1900 evening 05/01. pt alert and oriented x4, pleasant and cooperative. 02 at 4L n/c. pt stated she had a good day with therapy. pt took hs meds with water tolerating well. warren to dd with yellow urine to bag. pt appears to be sleeping soundly with hourly rounding checks. bed alarm on and call light in reach. will continue to monitor.
[2019-05-02 10:11] VITALS: BP 117/68
--- NOTE | 2019-05-02 17:20 | NUR ---
ASSUMED CARE OF PT AT 0715. PT IS A&OX4, TACHYCARDIA NOTED 111 IN AM AND BETWEEN 120-145 IN AFTERNOON DURING THERAPIES. PT NOTED TO BE ASYMPTOMATIC AT TIME, DUE TO DECREASED BP METOPROLOL HELD PER PERAMETERS, PROVIDER AWARE OF TACHYCARDIA, CHEST X-RAY COMPLETED, LUNG SCAN VQ ORDERED FOR 05/03. DURING ASSESSMENT LUNG SOUNDS NOTED TO BE DIMINISHED AND PT TO HAVE LOOSE COUGH, GUAIFENESIN ORDERED, PT ENCOURAGED TO INCREASE FLUID INTAKE AND USE IS, WELL AMBULATION. PT ON 4L O2 VIA NC TO MAINTAIN O2 AT >90%. BENITO CATHETER REMOVED PER PROTOCOL AT 1600. NO URINE OUTPUT AT THIS TIME. PATIENT REPORTED PAIN 3/10 DURING THERAPIES, BUT WAS GUARDING RLE, REQUIRING EXTRA ASSISTANCE AND TIME WITH THERAPIES, AND FROWNING AND GRIMICING, PAIN TREATED WITH PO MEDICATIONS. FALL PRECAUTIONS IN PLACE AND NURSING WILL CONTINUE TO MONITOR. FALL PRECAUTIONS IN PALCE AND NURSING WILL CONTINUE TO MONITOR.
[2019-05-02 19:10] VITALS: BP 112/52
--- NOTE | 2019-05-03 04:31 | NUR ---
UP TO BATHROOM WITH STANDBY ASSIST GAIT BELT AND WALKER FOR LARGE VOID. PRODUCTIVE COUGHING SPELLS OVERNIGHT. ENCOURAGED TO TAKE PAIN MED PRIOR TO THERAPY TODAY
[2019-05-03 05:28] LABS: HEMOGLOBIN 8.5 gm/dL (12.0-15.0); MCH 29.6 pg (26.0-34.0); MCHC 32.6 g/dL (28.0-37.0); MCV 90.8 fL (80.0-100.0); PLATELET COUNT 332 thou/uL (150-400); RBC 2.87 mil/uL (4.20-5.00); WBC 9.7 thou/uL (4.0-11.0)
[2019-05-03 05:55] LABS: MAGNESIUM 1.6 mg/dL (1.8-2.4); POTASSIUM 4.7 mmol/L (3.5-5.1)
[2019-05-03 07:50] VITALS: BP 125/57
[2019-05-03 10:04] LABS: ABSOLUTE NEUTROPHILS 7.2 thou/uL (1.4-8.2); METAMYELOCYTES 1 %; PLATELET ESTIMATE NORMAL
--- NOTE | 2019-05-03 10:14 | NUR ---
cm visited with pt and [facility], hh set up through ortho office. pt agree with using [facility] at [place].
--- NOTE | 2019-05-03 10:27 | NUR ---
DISCHARGE PLANNING. DISCHARGE PLANNED FOR 05/07 PER UNIT CM. HOME HEALTH RECOMMENDED AT DISCHARGE. PATIENT REFERRAL FAXED TO [facility] PER REQUEST. CALL PLACED TO RENEE, [facility] LIAISON. RENEE WILL REVIEW REFERRAL AND WILL VISIT WITH PATIENT AT BEDSIDE PRIOR TO DISCHARGE. FOLLOWING TO ASSIST WITH PATIENTS DISCHARGE NEEDS.
--- NOTE | 2019-05-03 18:20 | NUR ---
ASSUMED CARE OF PT AT 0715. PT IS A&OX4 AND VITAL SIGNS ARE STABLE. PAIN MANAGED WITH PO MEDICAITONS AND PT PARTICIPATED IN SCHEDULED THERAPIES. LOOSE COUGH, ENCOURAGED FLUIDS, IS AND AMBULATION, LUNG SOUNDS CLEAR/DIMINISHED. TACHYCARDIA NOTED DURING ASSESSMENT, MANAGED WITH PO MEDICATIONS, PROVIDER AWARE. DRESSING TO RIGHT LIP IN PLACE PER ORDERS. SURGEON CALLED AT PT REQUEST FOR STEROID INJECTION TO LEFT KNEE, SURGEON EXPECTED TO SEE PATIENT 05/04 AND WILL ADMINISTER INJECTION DURING VISIT, ORDERS ENTERED. PT ON 4L OF O2 TO MAINTAIN SPO2 >90%. CALLS APPROPRIATELY FOR ASSISTANCE. FALL PRECAUTIONS IN PLACE AND NURSING WILL CONTINUE TO MONITOR.
[2019-05-03 20:02] VITALS: BP 117/50
--- NOTE | 2019-05-04 04:40 | NUR ---
MIN ASSIST GETTING UP AND USING BSC DUE TO SOA. O2 3L SHE DOES AT HOME. APPRECIATES PAIN MED LAST EVENING AND PLANS TO TAKE PAIN MED PRIOR TO PT AGAIN TODAY. PLANS ARE FOR INJECTION TO LEFT KNEE TODAY BY DR LIANG.
[2019-05-04 09:26] VITALS: BP 107/41
--- NOTE | 2019-05-04 12:29 | NUR ---
ASSUMED CARE AT 0700. PATIENT IS ALERT AND ORIENTED X4. PATIENT LEE'S, METAL OR WOOD BLOCKER ARE EQUAL. LUNGS ARE CLEAR AND DEMINISHED WITH OCCASIONAL COUGH. PATIENT CONTINUES ON RESPIRATORY TX AND 02 AT 3L PER N/C. PATIENT HAS RIGHT HIP DAHLIA DRESSING IN PLACE. PATIENT LEFT KNEE INJECTED BY DR. LIANG WITH DEPOMEDROL AND LIDOCAINE. PATIENT TOLERATED THE PROCEDURE WELL. BANDAID IN PLACE. UP ON SIDE OF BED OR IN CHAIR FOR MEALS. FALL AND SAFETY PROTOCOLS IN PLACE. C/O LEFT KNEE PAIN/ AND RIGHT HIP PAIN. MEDICATED WITH PRN PAIN MED. CONTINUES TO PROGESS TOWARDS D/C GOALS. WILL CONTINUE TO MONITER.
[2019-05-04 20:19] VITALS: BP 121/56
--- NOTE | 2019-05-05 01:46 | NUR ---
ASSUMED CARE AT APPROX 1900 EVENING 05/04. PT SITTING UP IN RECLINER FULLY DRESSED AT CHANGE OF SHIFT. PT ASSISTED ONTO BSC TO HAVE BM AT HS AND ASSISTED PT WITH CHANGING INTO GOWN FOR BEDTIME. PT TOOK HS MEDS WITH WATER TOLERATING WELL. PT HAPPY THAT SHE HAD BM. PT ALSO VOIDED IN BSC. PT APPEARS TO BE SLEEPING SOUNDLY WITH HOURLY ROUNDING CHECKS. 02 AT 3L PER N/C. BED ALARM ON AND CALL LIGHT IN REACH. WILL CONTINUE TO MONITOR.
[2019-05-05 07:48] VITALS: BP 139/61
--- NOTE | 2019-05-05 10:16 | NUR ---
ASSUMED CARE AT 0700. PATIENT IS ALERT AND ORIENTED X4. PATIENT LEE'S, SMOKE ROOM OPERATOR ARE EQUAL. LUNGS ARE COARSE AND DEMINISHED WITH A LOOSE COUGH. PATIENT CONTINUES ON 02 SAT 3L PER N/C AND REMAINS ON RESPIRATORY TX. PATIENT HAS RIGHT HIP DRESSING THAT IS DRY AND INTACT. PATIENT HAS +1 LE EDEMA. LASIX GIVEN THIS AM. ENCOURAGED PATIENT TO ELEVATE HER FEET WHEN UP IN THE RECLINER. UP TO THE BSC TO VOID HARITHA COLORED URINE. FALL AND SAFETY PROTOCOLS IN PLACE. C/O LEFT KNEE PAIN. RIGHT HIP PAIN. MEDICATED WITH PRN PAIN MED. CONTINUES TO PROGRESS TOWARDS D/C GOALS. WILL CONTINUE TO MONITER.
[2019-05-05 19:53] VITALS: BP 137/67
--- NOTE | 2019-05-06 02:44 | NUR ---
assumed care at approx 1900 evening 05/05. pt alert and oriented x4, appropriate and cooperative visiting with at change of shift. pt assisted up to bsc at hs and into gown. pt took hs meds with no problems and appears to be sleeping soundly with hourly rounds. 02 at 3l per n/c. bed alarm on and call light in reach. will continue to monitor.
[2019-05-06 08:00] VITALS: BP 130/69
--- NOTE | 2019-05-06 15:52 | NUR ---
ASSUMED CARE OF PT AT 0715. PT IS A&OX4 AND VITAL SIGNS ARE STABLE. REPORTS HEADACHE, MANAGED WITH PO MEDICATIONS. 3L O2 VIA NC TO MAINTAIN SPO2 >90%. DAHLIA DRESSING INTACT, PUMP REMOVED. CALLS FOR ASSISTANCE APPROPRIATELY. FALL PRECATIONS IN PLACE AND NURSING WILL CONTINUE TO MONITOR.
[2019-05-06 19:39] VITALS: BP 114/56
--- NOTE | 2019-05-07 02:04 | NUR ---
PT ASSESSMENT COMPLETED AND VSS. MEDS GIVEN ORDERED AND WELL TOLERATED. FALL PRECAUTIONS IN PLACE. UP TO THE BSC WITH ASST/GAIT. STEADY. DSG ON R HIP DRY AND INTACT. SLEEPING WELL. EXCITED ABOUT GOING HOME. WILL CONTINUE TO MONITOR FREQUENTLY. SAT WNL ON 3L NC.
[2019-05-07 07:59] VITALS: BP 112/59
[2019-05-07] MEDS ORDERED: FLEXERIL PO (09:19)
[2019-05-07] MEDS ORDERED: IRON325 PO (09:19)
[2019-05-07] MEDS ORDERED: XARELTO10 MG PO (09:19)
[2019-05-07] MEDS ORDERED: COLACE100 MG PO (09:19)
[2019-05-07] MEDS ORDERED: MUCINEX600 MG PO (09:19)
[2019-05-07 10:21] VITALS: BP 129/49
--- NOTE | 2019-05-07 11:32 | NUR ---
ASSUMED CARE AT 0700. REPORTS SLEPT GOOD LAST NIGHT.PATIENT IS ALERT AND ORIENTED X4. ABLE TO VOICE HER OWN NEEDS. MACHINE SNELLER ARE EQUAL. LUNGS ARE COARSE AND DEMINISHED WITH A LOOSE COUGH. PATIENT CONTINUES ON 02 SAT 3L PER N/C AND REMAINS ON RESPIRATORY TX. PATIENT HAS RIGHT HIP DRESSING SOILED UNDERNEATH, INTACT. DR. LIANG AWARES AND WANTS TO LEAVE DAHLIA DRESSING WITH DISCHARGE. PT HAS APPOINTMENT WITH HIM TOMORROW. PATIENT BLE EDEMA IS BETTER. ENCOURAGED PATIENT TO ELEVATE HER FEET WHEN UP IN THE RECLINER. UP TO [facility] TO VOID HARITHA COLORED URINE. LAST BM WAS YESTERDAY. HGB STABLE CONTINUE TO BE ON IRON SUPPLEMENT.FALL AND SAFETY PROTOCOLS IN PLACE. DENIES PAIN. CONTINUE TO BE ON HIP PRECAUTION. OFFERED SUPPORTIVE CARE. PT HAD SHOWER, GROINS REDNESS IS GETTING BETTER. NYSTATIN APPLIED. ENCOURAGED PT TO CONTINUE WITH TX AT HOME. PT HAD SHOWER THIS AM. PT WORKED WITH PT AND WILL BE DISCHARGE SOON. H&P AND DISCHARGE SUMMARY FAXED TO HER PCP ORDERED. CALL LIGHT WITHIN REACH. WILL CONTINUE TO MONITOR. WILL BE DISCHARGE TODAY.
--- NOTE | 2019-05-08 12:08 | PLAN ---
[facility] [place] [address] REHAB UNIT PLAN OF CARE Name: GIGI HAYES Room #: 511-P [facility] IN M.R.#: [id number] Admission: 04/28/19 Attend Phys: Vincenzo Landin MD Discharge: 05/07/19 Date of : 49 Report #: [id number] THIS REPORT FOR: //name// CC: Vincenzo Valleremedios Orellana DATE OF SERVICE: 04/30/2019 PROGRESS NOTE AND OVERALL PLAN OF CARE SUBJECTIVE: The patient is seen back today in followup. She is in no distress. Temperature 98.5, pulse 88, respirations 20, blood pressure 114/52. She has some overall generalized malaise. Otherwise, has no specific complaints. Right hip dressing intact. Small amount of drainage DAHLIA dressing noted. She has no calf swelling. Transfers bed to chair were min assist, sit to stand was max assist. Once up, she did ambulate 65 feet min assist with a front-wheeled walker. In OT, she is moderate assistance for bathing. Bed mobility is max assist. She is on O2, which is chronic and premorbid. ASSESSMENT: 1. Severe degenerative arthritis, status post right total hip arthroplasty on 04/23/2019, weightbearing as tolerated. 2. Hypertension and fatigue, which have improved. 3. Chronic obstructive pulmonary disease, O2 dependent. 4. History of chronic paroxysmal atrial fibrillation. 5. Obesity. 6. Multiple prior surgical procedures. 7. Chronic kidney disease. 8. Depression. 9. Postoperative blood loss anemia. PLAN: The overall plan of care is based on the preadmission screen, post-admission physician evaluation and information garnered from therapy assessments. 1. Estimated length of stay is probably at least 7-14 days pending progress. 2. Medical prognosis is reasonably good. 3. Anticipated interventions includes the interdisciplinary acute inpatient rehabilitation program. 4. Anticipated functional outcomes would be for the patient to become modified independent with transfers, mobility and ADLs, so she can hopefully return back to her prior living situation. 5. Discharge destination would be back home with her . [facility] [address] [place] [address] REHAB UNIT PLAN OF CARE Name: GRAZYNASheridanGIGI A Room #: 511-P [facility] IN .R.#: [id number] Admission: 04/28/19 Attend Phys: Vincenzo Landin MD Discharge: 05/07/19 Date of : 49 Report #: [id number] 6. Expected therapy by discipline includes PT and OT 1-1/2 hours per day each 5 days a week throughout the duration of the acute inpatient rehabilitation stay. <ELECTRONICALLY SIGNED> By: Vincenzo Landin MD 05/08/19 1208 [id number] Vincenzo Landin MD /PMT
--- NOTE | 2019-05-08 12:08 | H ---
[facility] [place] [address] HISTORY AND PHYSICAL Name: GIGI HAYES Room #: 511-P [facility] IN M.R.#: [id number] Admission: 04/28/19 Attend Phys: Vincenzo Landin MD Discharge: 05/07/19 Date of : 49 Report #: [id number] THIS REPORT FOR: //name// CC: Vincenzo Valleremedios Orellana DATE OF SERVICE: 04/28/2019 HISTORY AND PHYSICAL/POST-ADMISSION PHYSICIAN EVALUATION HISTORY OF PRESENT ILLNESS: The patient is a 73-year-old female who was originally admitted to [facility] for a scheduled right total knee arthroplasty after failing outpatient conservative treatment for severe degenerative arthritis. She is allowed weightbearing as tolerated. Postop, she had problems with anemia, hypotension. She has COPD and is O2 dependent at home. She was monitored regarding medical issues and has a significant past medical history as noted below. For hypotension and fatigue gradually improved. She continued to be monitored regarding her pulmonary condition. She was felt to be ready and now has been admitted for acute in-hospital inpatient rehabilitation. PAST MEDICAL HISTORY: She has a history of obstructive sleep apnea, on CPAP, CVA x 2 with right-sided involvement, history of depression, anxiety, tremors, chronic home O2 use, hypertension, hyperlipidemia, PFO, history of cardiac arrest during surgery, COPD and emphysema, chronic kidney disease, GERD. PAST SURGICAL HISTORY: Includes loop recorder placed and removed. She has had left knee arthroscopy, bilateral carpal tunnel release, right knee arthroscopy, right knee replacement, diskectomies, bilateral decompression laminectomy, kyphoplasty, radiofrequency back procedure. MEDICATIONS: Please see the full medication listing. ALLERGIES: PIROXICAM AND THIMEROSAL. SOCIAL HISTORY: She lives at home with her , one step in. None inside, used a front-wheeled walker. One fall about a year ago, independent with ADLs and her provides most IADLs. HABITS: Occasional alcohol use, tobacco use, quit greater than a year ago. FAMILY HISTORY: Noncontributory. REVIEW OF SYSTEMS: No current complaints of chest pain, shortness of breath or abdominal discomfort. [facility] [address] [place] [address] HISTORY AND PHYSICAL Name: GIGI HAYES Hector Room #: 511-P [facility] IN [facility].#: [id number] Admission: 04/28/19 Attend Phys: Vincenzo Landin MD Discharge: 05/07/19 Date of : 49 Report #: [id number] PHYSICAL EXAMINATION: GENERAL: A 73-year-old female was seen earlier, was rather sleepy, but followed basic commands. VITAL SIGNS: Temperature 98, pulse 99, respirations 18, blood pressure 139/73. She is on nasal prong O2. HEAD, EYES, EARS, NOSE, AND THROAT: Facies appeared symmetric. CHEST: Sounded clear to auscultation. CARDIOVASCULAR: Regular rate and rhythm. ABDOMEN: Bowel sounds positive, nontender. She may have some mild weakness of that right side post CVA. EXTREMITIES: She has the DAHLIA drain in place. There is no focal calf swelling. Tone appeared to be otherwise intact. I did not assess sensation. She has been working in therapies with transfers at a max assist of 2. She is allowed weightbearing as tolerated. ASSESSMENT: A 73-year-old female with the following problem list: 1. Severe degenerative arthritis, status post right total hip arthroplasty on 04/23/2019, weightbearing as tolerated. 2. Hypotension and fatigue, which have improved. 3. Chronic obstructive pulmonary disease, O2 dependent. 4. History of chronic paroxysmal atrial fibrillation. 5. Obesity. 6. Multiple prior surgical procedures as noted above. 7. Chronic kidney disease. 8. Depression. 9. Postoperative acute blood loss anemia. PLAN: The patient has been admitted for acute in-hospital inpatient rehabilitation. From a postadmission physician evaluation perspective, there are no relevant changes since the preadmission screening. Please see the above review of prior and current medical and functional conditions and comorbidities. Please see the patient's previous and current functional status. As far as risk of complications, the patient has multiple medical comorbidities as noted above. Initial plan of care involves the interdisciplinary acute inpatient rehabilitation program. Measurable functional goals would be for the patient to become modified independent with transfers, mobility and ADLs. Prognosis is reasonably good with estimated length of stay probably at least 5-10 days and likely longer as she is at a lower level functionally. Potential barriers would include her multiple medical comorbidities and decreased functional status. The patient meets diagnostic criteria for an acute in-hospital inpatient rehabilitation stay. She meets medical necessity criteria. She does have the [address] [address] HISTORY AND PHYSICAL Name: ABIGAILGIGI Hector Room #: 511-P [facility] IN M.R.#: [id number] Admission: 04/28/19 Attend Phys: Vincezno Landin MD Discharge: 05/07/19 Date of : 49 Report #: [id number] tolerance for therapies and has appropriate discharge goals back to the home setting. <ELECTRONICALLY SIGNED> By: Vincenzo Landin MD 05/08/19 1208 [id number] Vincenzo Landin MD /[facility]
--- NOTE | 2019-05-13 14:12 | HC ---
[facility] [place] [address] CONSULTATION Name: GIGI HAYES Room #: 511-P [facility] IN ..#: [id number] Admission: 04/28/19 Attend Phys: Vincenzo Landin MD Discharge: 05/07/19 Date of : 49 Report #: [id number] THIS REPORT FOR: //name// CC: Vincenzo Landin Shane Orellana DATE OF SERVICE: 05/05/2019 NEUROBEHAVIORAL STATUS EXAMINATION ATTENDING PHYSICIAN: Vincenzo Landin MD. PLATEMAKER: Tra Keita, PhD. CLINICAL PRESENTATION: The patient is a 73-year-old female, admitted to [facility] for comprehensive inpatient rehabilitation program to improve functional mobility and activities of daily living and self-care, secondary to deficits from a right total knee arthroplasty after failing conservative treatment. Her assessment on admission to the rehab unit is for severe degenerative arthritis, status post right total hip arthroplasty on 04/23/2019, weightbearing as tolerated, hypertension with fatigue which has improved, COPD, O2 dependent, history of chronic paroxysmal atrial fibrillation, obesity, multiple prior surgical procedures, chronic kidney disease, depression and postoperative acute blood loss anemia. A complete description of her medical condition and history can be found in her medical record. Neuropsychological consultation was requested to provide assistance in the assessment of cognitive and emotional status, and to provide recommendations and services. Prior to this most recent hospitalization, she was driving and living independently with her in their home. She has 2 children. The patient is a high school graduate. She was employed, primarily doing clerical work, prior to her hospitalization. TECHNIQUES UTILIZED: Clinical interview, review of medical records, staff consultation and behavioral observation, mini mental status exam 2 standard version, clock drawing and verbal fluency assessments. EXAMINATION FINDINGS: The patient was alert and cooperative with the assessment. She accurately described the events surrounding her admission. There is no evidence of aphasia. Thoughts are logical and goal oriented. There is no evidence of thought disorder. She describes her symptoms to include decreased appetite, tiredness and fatigue, difficulty with memory and word finding, and depression. She does not report anxiety. The patient reports having taken Celexa as an antidepressant. She reports an improvement in mood since utilization of the antidepressant. [facility] [address] [place] [address] CONSULTATION Name: GIGI HAYES Hector Room #: 511-P [facility] IN [facility].#: [id number] Admission: 04/28/19 Attend Phys: Vincenzo Landin MD Discharge: 05/07/19 Date of : 49 Report #: [id number] Her performance on the MMSE-2 brief version is within normal limits with a raw score of 15/16. She was 3/3 for initial registration, 5/5 for orientation to time and place. She was 2/3 for immediate recall of 3 items after a brief time delay and distraction. Performance on the MMSE-2 standard version is within normal limits with a raw score of 29/30. She was 5/5 for serial sevens, 2/2 for naming, 1/1 for repetition, 3/3 for auditory comprehension. She can read and follow single command and write a sentence. The patient was able to copy a simple geometric design. Her score of 29/30 is within normal limits. She does present with an essential tremor that is described as worsening with fatigue. Difficulty in visual spatial construction as a result of tremor is noted. Clock drawings are within normal limits. Letter fluency was in the low average range with a raw score of 20, T-score of 42, percentile rank of 21. Category fluency was in the borderline range with a raw score of 29, T-score of 35, percentile rank of 7. Overall, total fluency was borderline with a raw score of 49, T-score of 35 and percentile rank of 7. The patient is presenting with deficits in visual spatial construction secondary to tremor. Verbal fluency suggests mild deficits and can often be seen with executive dysfunction. DIAGNOSTIC IMPRESSION: Mild neurocognitive disorder, unspecified, without behavior disorder. Unspecified depressive disorder. RECOMMENDATIONS: Continued use of antidepressant medication to assist in overall adjustment. The patient may benefit from an outpatient neuropsychological assessment to clarify cognitive status. Variability in cognitive functioning will affect safety while driving. Further assessment of driving safety is indicated. Continued use of an antidepressant to assist in the management of depression. Use of compensatory strategies for cognitive deficits may be helpful. Thank you very much for allowing me to provide consultation on this patient. <ELECTRONICALLY SIGNED> By: Tra Keita, PhD 05/13/19 1412 [id number] Tra Keita, PhD /nt
== END 2019-05-07 13:04 | disposition home health service (06) | DRG 554 ==
LOC: ENTRNSPT 05-07 12:38 → EDTRNSPTSTS 05-07 12:46
PROVIDERS: Internal Medicine; Nurse Practitioner; ADMIT Physical Medicine & Rehabilitation
DX: M16.11 Unilateral primary osteoarthritis, right hip (principal); D62 Acute posthemorrhagic anemia; E87.1 Hypo-osmolality and hyponatremia; I95.9 Hypotension, unspecified; J44.9 Chronic obstructive pulmonary disease, unspecified; I48.0 Paroxysmal atrial fibrillation; E66.9 Obesity, unspecified; F32.9 Major depressive disorder, single episode, unspecified; M19.011 Primary osteoarthritis, right shoulder; I12.9 Hypertensive chronic kidney disease with stage 1 through stage 4 chronic kidney disease, or unspecified chronic kidney disease; N18.3 Chronic kidney disease, stage 3 (moderate); G47.33 Obstructive sleep apnea (adult) (pediatric); E78.5 Hyperlipidemia, unspecified; K21.9 Gastro-esophageal reflux disease without esophagitis; J02.9 Acute pharyngitis, unspecified; Z88.8 Allergy status to other drugs, medicaments and biological substances; Z99.81 Dependence on supplemental oxygen; Z68.37 Body mass index [BMI] 37.0-37.9, adult
CPT/HCPCS: 10112

== ENCOUNTER → 2020-02-21 | Outpatient (CLI) | payer OTHER ==
[~2020-02-21] MED LIST changes: +IRON325 PO; +MUCINEX600 MG PO
== END ==
LOC: BC 02-14 08:51
PROVIDERS: ATTEND Internal Medicine
DX: Z12.31 Encounter for screening mammogram for malignant neoplasm of breast (principal)

== ENCOUNTER → 2021-07-01 | Outpatient (CLI) | payer OTHER | LOC: BC 10:22 | PROVIDERS: ATTEND Internal Medicine | DX: Z12.31 Encounter for screening mammogram for malignant neoplasm of breast (principal); N64.89 Other specified disorders of breast ==

== ENCOUNTER → 2021-07-03 | Outpatient (CLI) | payer OTHER | LOC: BC 08:25 | PROVIDERS: ATTEND Internal Medicine | DX: R92.8 Other abnormal and inconclusive findings on diagnostic imaging of breast (principal) ==